=== PATIENT | male | born 1945 | race Caucasian/White ===

== ENCOUNTER 2019-01-20 12:13 | Day surgery (SDC) | payer MEDICARE, OTHER, SELFPAY ==
--- NOTE | 2019-01-20 | PATH_ITS ---
[facility] Accession Number: [id number] . 01 Material submitted: . PART A: colon - CECAL POLYP PART B: colon - TRANSVERSE COLON POLYP PART C: colon - DESCENDING COLON POLYPS X5 . 01 Clinical history: . PERSONAL HISTORY OF COLONIC POLYPS FAMILY HISTORY OF MALIGNANT NEOPLASM OF DIGESTIVE . 02 Diagnosis: A. Cecum, Polyp: Colonic mucosa with prominent benign lymphoid aggregate. Melanosis coli. Negative for serrated lesion, dysplasia or malignancy. . B. Transverse Colon, Polyp: Tubular adenoma. . C. Descending Colon, Polyps: Fragments of tubular adenoma and fragment of hyperplastic polyp (five polyps removed). [facility] 01/22/2019 1023 Local . 02 Electronically signed: . Jacobo Tabares MD, PhD, Pathologist NPI- [id number] . 01 Gross description: . (A) Received in formalin, labeled cecal polyp, is a fragment of coelho tissue (0.3 x 0.2 x 0.1 cm). Entirely submitted in cassette A1. (B) Received in formalin, labeled transverse colon polyp, are two fragments of coelho tissue (0.2 x 0.2 x 0.1 cm and 0.3 x 0.3 x 0.1 cm). Entirely submitted in cassette B1. (C) Received in formalin, labeled descending colon polyp x5, are six fragments of coelho tissue (0.8 x 0.5 x 0.2 cm in aggregate). Entirely submitted in cassette C1. ([id number]) /[facility] 01/21/2019 1531 Local . 02 Pathologist provided ICD-10: D12.3, D12.4 . 02 CPT . 671715, [id number], [id number] Performed at: [address], [place], [place] [id number] MD Hany Chandler MD Phone: [phone] Performed at: 02 [facility] [place] [address] [place] [id number] MD Nancie West MD Phone: [phone]
[2019-01-20 13:52] VITALS: BP 114/69; PULSE 85; RESP 14; TEMP 36.2; O2SAT 98; BMI 24.1
[2019-01-20] MEDS: SODIUM CHLORIDE 0.9% 1,000 ML 70 ML IV (14:12)
--- NOTE | 2019-01-20 16:01 | PM.HP.1 ---
History of Present Illness History of Present Illness Date Patient Seen: 01/20/19 Time Patient Seen: 16:01 Chief complaint: [id number] COLONOSCOPY W/POSS BX Narrative: Patient is a very pleasant 73-year-old male who presented to the office for further evaluation with a personal history of colon polyps. He does have a history of chronic constipation secondary to chronic narcotic pain medication. He also describes daily abdominal pain. His mother had colon cancer. He was last seen in the office on November 03, 2018 - He denies any changes to his medical history, medications, surgical history, or family history since that time. Patient History Medical History BPH (benign prostatic hyperplasia) (Acute) Diabetes (Acute) Peripheral neuropathy (Acute) Social History household members: friend(s) Family & Social History Social History: household members friend(s) Meds Home Medications and Allergies Home Medications Medication Instructions Recorded Confirmed Type LORATIDINE/P-EPHED 10/240 - 1 tab PO PRN #0 11/16/10 01/20/19 History (#CUAUHTEMOCITIN-D 24 HOUR) Lantus U-100 Insulin 20 unit SQ HS #0 11/16/10 01/20/19 History atorvastatin [Lipitor] 40 mg PO HS #0 11/16/10 01/20/19 History lisinopril 40 mg PO QDAY #0 11/16/10 01/20/19 History metformin 1,000 mg PO BID #0 11/16/10 01/20/19 History Fluticasone Propionate (FLONASE) 1 spray INTRANASAL BID #0 04/18/12 01/20/19 History hydrochlorothiazide 25 mg PO QDAY #0 07/14/12 01/20/19 History hydrocodone-acetaminophen 2 tab PO TID PRN 01/20/19 01/20/19 History Allergies Allergy/AdvReac Type Severity Reaction Status Date / Time amitriptyline [AMITRIPTYLINE] Allergy Severe BLISTERS Unverified 08/13/17 12:13 Review of Systems Review of Systems ROS Unobtainable: All systems reviewed & are unremarkable except as noted in HPI and below Exam Vital Signs (past 8 hours): - 01/20/19 13:52 Temperature 97.2 F L Pulse Rate 85 Respiratory Rate 14 Blood Pressure 114/69 Pulse Oximetry 98 Oxygen Delivery Method Room Air Narrative Exam Narrative: No acute distress Const General: cooperative, healthy appearing, comfortable and well developed Nutritional Appearance: average body habitus Orientation: alert, awake and oriented x3 HENMT Head: normal to inspection and atraumatic Nose: external nose normal Resp Effort & Inspection: normal respiratory effort and able to speak in complete sentences Auscultation: clear to auscultation bilaterally Cardio Palpation: normal PMI Rate: regular rate Rhythm: regular rhythm Heart Sounds: S1 normal and S2 normal GI Palpation: soft and No tender Auscultation: normal bowel sounds Extrem General: no pedal edema Assessment & Plan Assessment & Plan narrative: 1. Personal history of colon polyps 2. Family history of colon cancer 3. Daily narcotic pain medications 4. Abdominal pain 5. Constipation - Colonoscopy today, further recommendations to follow
--- NOTE | 2019-01-20 16:21 | SUR.OPER ---
GLASSES IN LABELED BAG TO PACU WITH PATIENT
--- NOTE | 2019-01-20 16:27 | PM.OP.ENDO ---
Operative Date/Time/Diagnoses Date of procedure: 01/20/19 Time of procedure: 16:05 Pre-op diagnosis: 1. Abdominal pain 2. History of polyps 3. Family history of colon cancer 4. Constipation Procedure Notes Procedure in detail: Surgeon: Jeanne Marroquin DO Procedure: Colonoscopy with polypectomy Preoperative diagnosis: 1. Personal history of colon polyps 2. Family history of colon cancer (mother) 3. Chronic constipation 4. Abdominal pain Postoperative diagnosis: 1. One polyp in the cecum 2 mm 2. One polyp in the transverse colon 3 mm 3. Five colon polyps in the descending colon ranging from 2-3 mm 4. Diverticulosis scattered throughout the sigmoid, descending, and transverse colon 5. Mild internal hemorrhoids Medications: Monitored anesthesia care, see anesthesia note Preanesthesia Assessment An H and P was performed/updated and the Px?s ASA class is 2. The procedure was discussed in detail with the patient. The potential risks and complications including infection, bleeding, missed lesions, perforation, need for surgery in case of perforation, prolonged hospital stay, and were explained. A brief question and answer period was allotted and once all questions were answered, informed consent was obtained. The patient was brought back to the procedure room and placed on standard monitoring. The patient?s vital signs were monitored continuously throughout the entire procedure. Prior to starting, a timeout was performed to confirm the patient?s identity, allergies, medications, and procedure. Procedure in detail The patient was placed in left lateral decubitus position and once adequate sedation was obtained a HANSEL was performed. The digital rectal examination did not reveal any palpable lesions. The tip of the colonoscope was placed in the anal canal and advanced without difficulty all the way to the cecum which was identified by the appendiceal orifice and the ileocecal valve. Careful examination of all harris of the colon was performed with irrigation of any residual stool. A 2 mm colon polyp was noted in the cecum removed with Jumbo forceps. 3 mm polyp was removed from the transverse colon with Jumbo forceps. Five colon polyps were removed from the descending colon ranging from 2-3 mm with Jumbo forceps. Scattered diverticulosis were noted in the sigmoid, descending, transverse colon. Mild internal hemorrhoids were noted on retroflexion. The patient tolerated the procedure well and will be brought back to the recovery area to be discharged once criteria are met. The prep was judged to be good/excellent and adequate to identify polyps less than 5 mm. The withdrawal time was 9min. The total physician intraservice time was 20min. Complications There were no complications and estimated blood loss was minimal. Recommendations: Resume previous diet Continue outPx medications Follow up pathology results Repeat colonoscopy after pathology results are reviewed. Office follow up if symptoms of abdominal pain and constipation. An emergency contact number was given to the patient for any complications related to the procedure
[2019-01-20 16:30] VITALS: BP 83/53; PULSE 64; RESP 16; TEMP 36.2; O2SAT 98
[2019-01-20 16:35] VITALS: BP 97/61; PULSE 74; RESP 11; O2SAT 97
[2019-01-20 16:40] VITALS: BP 104/62; PULSE 77; RESP 20; O2SAT 98
[2019-01-20 16:45] VITALS: BP 116/68; PULSE 18; RESP 70; O2SAT 99
[2019-01-20 16:50] VITALS: BP 125/74; PULSE 67; RESP 15; TEMP 36.7; O2SAT 99
== END 2019-01-20 17:05 | disposition home or self-care (01) ==
PROVIDERS: PCP Internal Medicine; Visit Provider Student in an Organized Health Care Education/Training Program
PROC: 0DJD8ZZ Inspection of Lower Intestinal Tract, Via Natural or Artificial Opening Endoscopic (ICD-10-PCS; CPT 45378; principal; 2019-01-20 14:30)
DX: R10.9 Unspecified abdominal pain (principal); Z80.0 Family history of malignant neoplasm of digestive organs; K59.00 Constipation, unspecified; K64.8 Other hemorrhoids; K57.30 Diverticulosis of large intestine without perforation or abscess without bleeding; D12.3 Benign neoplasm of transverse colon; D12.4 Benign neoplasm of descending colon
CPT/HCPCS: 45380; J2250; J2704; J3010

== ENCOUNTER → 2019-02-26 13:38 | Outpatient (CLI) | payer MEDICARE, OTHER, SELFPAY ==
--- NOTE | 2019-02-26 14:28 | DI.CT.S_ITS ---
PROCEDURE: CT ABDOMEN PELVIS W CON INDICATIONS: generalized abdominal pain TECHNIQUE: After the administration of oral and intravenous contrast, 5 mm thick sections acquired from the diaphragms to the symphysis. 5 mm thick coronal and sagittal reformats were performed. For radiation dose reduction, the following was used: automated exposure control, adjustment of mA and/or kV according to patient size. COMPARISON: [facility], CT, ABDOMEN/PELVIS WITH CONTRAST, 05/10/2013, 10:41. FINDINGS: Image quality: Excellent. ABDOMEN: Lung bases: Increased glass opacity in the right middle lobe, (2/) compared to 2014. No pleural effusion. Heart size is normal. Coronary artery calcifications. Solid organs: Liver is normal in size and enhancement. Gallbladder is unremarkable. Biliary system is non-dilated. Pancreas enhances uniformly. Punctate pancreatic calcifications likely the sequelae of chronic calcific pancreatitis. No pancreatic ductal dilatation. Spleen is normal in size and enhancement. No adrenal nodules. Kidneys are normal in size and enhancement, without hydronephrosis. Peritoneum and bowel: Stomach, small bowel, and colon loops are normal in caliber and wall thickness. Extensive colonic diverticulosis. The appendix is normal. No free fluid or air. Nodes and vessels: No retroperitoneal or mesenteric adenopathy. Ectasia of the abdominal aorta. Moderate atherosclerotic plaque. Scarring anterior to the right common femoral artery likely due to prior vascular intervention. Retroaortic left renal vein, and variant. Miscellaneous: Periumbilical scarring unchanged since 2013. PELVIS: Genitourinary: Bladder is decompressed. Prostatomegaly. Miscellaneous: No inguinal hernias or adenopathy. Bones: No suspicious bony lesions. Mild degenerative change. No vertebral body compression fractures. IMPRESSION: 1. No acute inflammatory process identified. 2. Right middle lobe groundglass pulmonary nodule appears to be enlarging since 2013. CT of the chest is recommended for further evaluation. Dictated by: Amando Gomez M.D. on 02/26/2019 at 16:09 Approved by: Amando Gomez M.D. on 02/26/2019 at 16:20
[2019-02-26 14:43] LABS: Blood Urea Nitrogen 18 mg/dL (9-20); Estimated Glomerular Filt Rate > 60.0 mL/min (>60)
[2019-03-01 15:26] LABS: Urea Breath Test >18YRS NOT DETECTED
== END ==
PROVIDERS: PCP Internal Medicine; Visit Provider Internal Medicine
DX: R10.84 Generalized abdominal pain (principal); R91.1 Solitary pulmonary nodule; I25.10 Atherosclerotic heart disease of native coronary artery without angina pectoris; K57.90 Diverticulosis of intestine, part unspecified, without perforation or abscess without bleeding
CPT/HCPCS: 36415; 74177; 82565; 83013; 84520; Q9967

== ENCOUNTER → 2019-03-05 12:13 | Outpatient (CLI) | payer MEDICARE, OTHER, SELFPAY ==
--- NOTE | 2019-03-05 12:35 | DI.CT.S_ITS ---
PROCEDURE: CT CHEST WO CON INDICATIONS: solitary pulmonary nodule TECHNIQUE: Noncontrast 2.0-2.5 mm thick sections acquired from the pulmonary apices to the posterior costophrenic angles. 7 mm thick axial MIP and 5 mm coronal and sagittal reformats were then acquired. A low radiation dose technique was utilized. COMPARISON: [facility], CT, ABDOMEN/PELVIS WITH CONTRAST, 05/10/2013, 10:41. [facility], CT, CT ABDOMEN PELVIS W CON, 02/26/2019, 14:48. FINDINGS: Image quality: Diagnostic, given the low radiation dose technique. Lungs and pleura: Bilateral upper lobe centrilobular emphysema. Ill-defined scarring/atelectasis in the anterior left upper lobe. There is additional ill-defined nodular focus measuring approximately 6 mm seen on image 148 series 3 in the right middle lobe which is grossly unchanged since prior study. A calcified pleural plaque involving the left lower lobe. Scattered calcified granulomas and left hilar lymph nodes. 2 mm nodules seen in the right lung base, indeterminate image 207 series 3. Ill-defined ground glass in left upper lobe on image 113 series 3. Elsewhere, no acute consolidation. No pleural effusion or pneumothorax Mediastinum: Heart size is normal. Coronary artery calcifications are present. No pericardial effusion. No mediastinal adenopathy by size criteria. Thoracic aorta and central pulmonary arteries are normal in size. Esophagus is normal in caliber. No hiatal hernia. Bones and chest wall: No suspicious bony lesions. No vertebral body compression fractures. No axillary or supraclavicular adenopathy by size criteria. Thyroid gland unremarkable. Abdomen: Visualized upper abdomen solid organs and bowel loops appear normal in the absence of contrast. IMPRESSION: Ill-defined areas of patchy consolidation and nodularity involving the right middle lobe and left upper lobe, probably postinflammatory given the CT appearance, although cannot entirely exclude underlying small pulmonary nodule. Recommend followup with CT chest in 6 months. Upper lobe predominant centrilobular emphysema Calcified pleural plaques raise the possibility of asbestos related pleural disease Additional chronic and incidental findings as above. Fleischner Society criteria for SOLID lung nodule followup. Nodule size (mm)Low-risk patientHigh-risk patient<6 (single or multiple)No routine followup.Optional CT at 12 months. 6-8 (single or multiple)CT at 6-12 months, then optional CT at 18-24 mo.CT at 6-12 months, then CT at 18-24 months. >8 (single)CT at 3 months, PET-CT, or biopsy. Same as for low-risk pts. >8 (multiple)CT at 3-6 months, then optional CT at 18-24 mo.CT at 3-6 months, then CT at 18-24 months. Fleischner Society criteria for SUB-SOLID lung nodule followup. Solitary pure ground-glass nodules<6 mm (ground glass or part solid)No followup needed. 6 mm or larger (ground glass)CT at 6-12 months to confirm persistence, then CT every 2 years until 5 years.6 mm or larger (part solid)CT at 3-6 months to confirm persistence, then annual CT until 5 years if unchanged and solid component remains <6 mm. Multiple sub-solid nodules<6 mmCT at 3-6 months, then CT consider at 2 & 4 years for high risk patients. [address] at 3-6 months. Subsequent management based on most suspicious lesions. Recommendations do not apply to lung cancer screening, patients with immunosuppression, or patients with known primary cancer. Dictated by: Scott Ahuja M.D. on 03/05/2019 at 16:28 Approved by: Scott Ahuja M.D. on 03/05/2019 at 16:35
== END ==
PROVIDERS: PCP Internal Medicine; Visit Provider Internal Medicine
DX: R91.8 Other nonspecific abnormal finding of lung field (principal); J43.2 Centrilobular emphysema; I25.10 Atherosclerotic heart disease of native coronary artery without angina pectoris; J92.9 Pleural plaque without asbestos
CPT/HCPCS: 71250

== ENCOUNTER → 2019-09-17 08:20 | Outpatient (CLI) | payer MEDICARE, OTHER, SELFPAY ==
--- NOTE | 2019-09-17 | DI.US.S_ITS ---
PROCEDURE: US ABDOMEN LIMITED INDICATIONS: HERNIA TECHNIQUE: Real-time focused scanning was performed of the inguinal region, with image documentation. COMPARISON: [facility], CT, CT ABDOMEN PELVIS W CON, 02/26/2019, 14:48. FINDINGS: No hernia found. No mass lesion identified and no adenopathy seen. IMPRESSION: No lesion found. The tonal regulator reports the patient's area of current clinical concern is at the scar related to prior surgery at the right groin area. Dictated by: Yong Woods M.D. on 09/17/2019 at 10:54 Approved by: Yong Woods M.D. on 09/17/2019 at 10:56
== END ==
PROVIDERS: PCP Internal Medicine; Referring Provider Internal Medicine; Visit Provider Internal Medicine
DX: K46.9 Unspecified abdominal hernia without obstruction or gangrene (principal); L90.5 Scar conditions and fibrosis of skin
CPT/HCPCS: 76705

== ENCOUNTER → 2019-11-02 11:34 | Outpatient (CLI) | payer MEDICARE, OTHER, SELFPAY ==
--- NOTE | 2019-11-02 | DI.CT.S_ITS ---
PROCEDURE: CT ABDOMEN PELVIS W CON INDICATIONS: Lower abdominal pain, drug induced constipation, weight loss TECHNIQUE: After the administration of oral and intravenous contrast, 5 mm thick sections acquired from the diaphragms to the symphysis. 5 mm thick coronal and sagittal reformats were performed. For radiation dose reduction, the following was used: automated exposure control, adjustment of mA and/or kV according to patient size. COMPARISON: [facility], CT, CT ABDOMEN PELVIS W CON, 02/26/2019, 14:48. FINDINGS: Image quality: Excellent. ABDOMEN: Lung bases: Lung bases are clear. Heart size is normal. Solid organs: Liver is normal in size and enhancement. Gallbladder is within normal limits. Biliary system is non-dilated. Pancreas enhances normally. Spleen is normal in size and enhancement. No adrenal nodules. Kidneys are normal in size and enhancement, without hydronephrosis. Nonobstructing 2 mm calculus within the inferior pole right kidney. Peritoneum and bowel: Stomach, small bowel, and colon loops are normal in caliber and wall thickness. Diverticulosis of the descending and sigmoid colon. No free fluid or air. Normal appendix. Nodes and vessels: No retroperitoneal or mesenteric adenopathy. Aorta and inferior vena cava are normal in caliber. Miscellaneous: No ventral hernias. PELVIS: Genitourinary: Bladder wall thickness is normal. Miscellaneous: No inguinal hernias or adenopathy. Bones: No suspicious bony lesions. No vertebral body compression fractures. IMPRESSION: 1. No acute process. 2. Normal appendix. 3. Left colonic diverticulosis without evidence of diverticulitis. 4. Small nonobstructing right inferior pole renal calculus. Dictated by: Wisam Walsh M.D. on 11/02/2019 at 17:27 Approved by: Wisam Walsh M.D. on 11/02/2019 at 17:29
== END ==
PROVIDERS: PCP Internal Medicine; Referring Provider Student in an Organized Health Care Education/Training Program; Visit Provider Student in an Organized Health Care Education/Training Program
DX: R10.30 Lower abdominal pain, unspecified (principal); K59.03 Drug induced constipation; R63.4 Abnormal weight loss; N20.0 Calculus of kidney; K57.30 Diverticulosis of large intestine without perforation or abscess without bleeding
CPT/HCPCS: 74177; Q9967